=== PATIENT | male | born 1995 | race Caucasian/White ===

== ENCOUNTER 2018-09-19 12:21 | Emergency (ER) | payer OTHER, SELFPAY ==
[2018-09-19 12:29] VITALS: BP 129/84; PULSE 109; RESP 16; TEMP 36.6; O2SAT 98
--- NOTE | 2018-09-19 12:40 | ED.GENADUL_ITS ---
Discharge Plan Disposition Patient Disposition: HOME Condition: Stable Discharge Details Chief Complaint: DentalOral Clinical Impression: Odontalgia, Dental infection Primary Care Provider: None,None ED Provider: Kellen Holloway Home Meds and New Rx's Prescriptions: New penicillin V potassium 500 mg tablet 500 mg PO QID 7 Days Qty: 28 RF: 0 Discharge Instructions Instructions: Toothache (ED) Additional Instructions: Alternate Tylenol and Motrin as needed and directed for pain. Take the antibiotics until finished. Call the local dentist in your area to schedule follow-up appointment. You can call care management for assistance with a follow-up appointment as needed. Return immediately to the emergency department any worsening or new concerning symptoms. Discharge Data Discharge Physician: Kellen Holloway Medical Decision Making 23-year-old male presents with right upper tooth pain after broke tooth recently and now with right upper tooth pain and facial swelling. Denies fever. There is a broken tooth to the right mid upper jaw with no evidence of abscess. No submandibular swelling, lymphadenopathy, no evidence of Agapito's angina. Patient appears nontoxic and in no acute distress. Patient states he called multiple local dentist and was advised to come to the emergency department and is requesting assistance with a dentist appointment. Will give a prescription for dental infection. Patient given a list of local dentist and advised to call for appointments. Will also place patient on care management list to help with obtaining this appointment if needed. Patient instructed to alternate Tylenol and Motrin, finish antibiotics completely and to return at any time if symptoms worse. HPI General Mode of arrival: ambulatory . Date/Time Provider Initiated Documentation: 09/19/18 12:32 . Limitations to Documentation: no limitations . Information obtained by: patient . HPI Narrative: Patient is a 23-year-old male who presents the ED with complaint of right upper tooth pain for the past few days. Patient states his teeth are uneven and often when he closes his mouth they break off into each other. Patient states his pain radiates up into his right ear. He has been taking Tylenol Motrin without relief. Patient now adm its to right-sided facial swelling. He denies any known fever. He denies any sore throat, neck pain, difficulty swallowing, chest pain or shortness of breath. Patient states he called several local dentist but was unable to obtain appointment. He states 1 of the local dentist advised that he come to the emergency department for referral to then follow-up with them. Related Data Home Medications Medication Instructions Recorded Confirmed penicillin V potassium 500 mg PO QID 7 Days #28 tab 09/19/18 Previous Rx's Medication Instructions Recorded penicillin V potassium 500 mg PO QID 7 Days #28 tab 09/19/18 Allergies Allergy/AdvReac Type Severity Reaction Status Date / Time No Known Allergies Allergy Unverified 09/19/18 12:31 General Stated Complaint: DentalOral ROSELYN: 3 Review of Systems Review of Systems All systems reviewed & are unremarkable except as noted in HPI and below PFSH Medical History No significant past medical history (Acute) Surgical History History of tonsillectomy (Chronic) Social History Smoking/Tobacco Use Status: Current every day alcohol intake: current alcohol intake frequency: a few times a month substance use type: does not use Exam Const General: cooperative, healthy appearing and no acute distress HENMT Head: normal to inspection Ears: hearing grossly normal bilaterally, external ears normal and TM's normal bilaterally General nose exam: external nose normal Face and sinus: normal facial exam Mouth: oral mucosae normal Teeth image: 1. Majority of tooth missing, base of tooth still embedded with tenderness to palpation and mild erythema of surrounding mucosa, no evidence of edema or abscess. Throat: posterior oropharynx normal Eyes General: appearance normal, both eyes and all related structures Pupils: PERRL EOM: EOM intact bilaterally Neck Neck: normal visual inspection, no lymphadenopathy, no meningeal signs, trachea midline and No submandibular swelling Chest Chest: normal inspection of the chest and no tenderness Resp Effort & Inspection: normal respiratory effort and able to speak in complete sentences Cardio Rate: regular rate Skin General skin exam: no rashes or lesions noted Neuro General: alert, awake and oriented x3 Cognition: normal cognition Speech: speech normal Motor: muscle tone normal throughout Sensory Exam: no sensory deficits noted Psych Appearance: grossly normal Mental Status: mental status grossly normal Speech and Movement: speech and movement normal Affect: normal affect Course Vital Signs Temperature 97.9 F 09/19/18 12:29 Pulse 109 H 09/19/18 12:29 Respiratory Rate 16 09/19/18 12:29 Blood Pressure 129/84 09/19/18 12:29 Pulse Oximetry 98 09/19/18 12:29 Temperature 97.9 F 09/19/18 12:29 Temperature Source Skin 09/19/18 12:29 Pulse 109 H 09/19/18 12:29 Respiratory Rate 16 09/19/18 12:29 Blood Pressure 129/84 09/19/18 12:29 Blood Pressure Position Sitting 09/19/18 12:29 Pulse Oximetry 98 09/19/18 12:29 Oxygen Delivery Method Room Air 09/19/18 12:29 Oxygen Flow Rate 0 09/19/18 12:29 Pain Level 8 09/19/18 12:29
== END 2018-09-19 13:37 | disposition home or self-care (01) ==
PROVIDERS: Emergency Provider Physician Assistant
DX: R68.84 Jaw pain (principal); S02.5XXA Fracture of tooth (traumatic), initial encounter for closed fracture; X58.XXXA Exposure to other specified factors, initial encounter; K04.7 Periapical abscess without sinus; K08.89 Other specified disorders of teeth and supporting structures
CPT/HCPCS: 99283